=== PATIENT | female | born 1965 | race Caucasian/White ===

== ENCOUNTER → 2017-09-24 | Outpatient (CLI) | payer BC ==
[2017-09-24] VITALS (13 sets, daily range): BP systolic 162–216; BP diastolic 74–115; PULSE 58–79
[~2017-09-24] VITALS: Ht 172.7 cm; Wt 85.5 kg
[~2017-09-24] MED LIST: EPA FISH OIL1 SGL PO; FORTAMET500 M1 PO; LEXAPRO20 MG PO; PROBIOTIC ACID1 EAC3 PO; PROTONIX 40MG T40 MG PO; ZESTRIL40 MG PO
== END ==
LOC: COL.RAD 11:57
DX: K76.0 Fatty (change of) liver, not elsewhere classified (principal); D69.6 Thrombocytopenia, unspecified; R16.2 Hepatomegaly with splenomegaly, not elsewhere classified

== ENCOUNTER 2018-04-03 13:36 | Day surgery (SDC) | payer SELFPAY ==
[~2018-04-03] VITALS: Ht 172.7 cm; Wt 82.8 kg
[2018-04-03] MEDS ORDERED: ULTRAM ER100 MG PO (13:55)
[2018-04-03] MEDS ORDERED: NEURONTIN600 MG/TAB PO (13:55)
[2018-04-03] MEDS ORDERED: DULERA1 ARO IH (13:56)
[2018-04-03 14:06] VITALS: BP 169/96; PULSE 76; TEMP 98.8
[2018-04-03 15:40] VITALS: BP 145/89; PULSE 75; TEMP 98.7
[2018-04-03 15:55] VITALS: BP 137/92; PULSE 74
[2018-04-03 16:10] VITALS: BP 146/89; PULSE 79
== END 2018-04-03 16:18 | disposition home or self-care (01) ==
LOC: SDCO 13:36
DX: K74.60 Unspecified cirrhosis of liver (principal); I85.10 Secondary esophageal varices without bleeding; K29.30 Chronic superficial gastritis without bleeding; E78.00 Pure hypercholesterolemia, unspecified; F32.9 Major depressive disorder, single episode, unspecified; F41.9 Anxiety disorder, unspecified; E11.9 Type 2 diabetes mellitus without complications; K76.0 Fatty (change of) liver, not elsewhere classified; R16.2 Hepatomegaly with splenomegaly, not elsewhere classified; D69.6 Thrombocytopenia, unspecified; K75.81 Nonalcoholic steatohepatitis (NASH); F17.210 Nicotine dependence, cigarettes, uncomplicated; Z88.5 Allergy status to narcotic agent; Z88.1 Allergy status to other antibiotic agents; Z79.84 Long term (current) use of oral hypoglycemic drugs; Z90.49 Acquired absence of other specified parts of digestive tract
CPT/HCPCS: J2250; J3010; J7030